=== PATIENT | male | born 2000 ===

== ENCOUNTER 2024-06-23 12:31 | Emergency (ER) | payer OTHER, SELFPAY ==
[2024-06-23 12:38] VITALS: BP 162/81; PULSE 98; RESP 16; TEMP 36.4; O2SAT 99
--- NOTE | 2024-06-23 13:07 | ED_ITS ---
HPI - Skin/Abscess/Foreign Bdy General Chief complaint: Skin/Abscess/Foreign Body Stated complaint: Shingles Time Seen by Provider: 06/23/24 13:07 Source: patient and RN notes reviewed Mode of arrival: ambulatory Limitations: no limitations History of Present Illness HPI narrative: 24-year-old male presents Express Care complaining of possible shingles to his face. He states he has a history of recurrent shingles that is stress related. Patient had chickenpox as a child. Patient has not gotten the her the zoster vaccine yet. Patient reports that he noticed blisters around his right eye start taking is valacyclovir on Saturday and took additional dose this morning. States he has ran out of his antiviral medication and would like a refill to finish treatment. Patient denies any fevers, body aches, chills, upper respiratory symptoms. Denies any vision changes, blurry vision, headaches, tinnitus, or hearing loss. Related Data Allergies Allergy/AdvReac Type Severity Reaction Status Date / Time No Known Allergies Allergy Verified 06/23/24 12:45 Review of Systems Review of Systems: CONSTITUTIONAL: Denies fever, chills, or sweats. EYES: Denies visual changes, blurry vision, redness, or discharge. ENT: Denies rhinorrhea, congestion, sore throat, hearing changes, or otalgia. CARDIOVASCULAR: Denies chest pain, palpitations, or edema. RESPIRATORY: Denies cough or dyspnea. GASTROINTESTINAL: Denies abdominal pain, nausea, vomiting, or diarrhea. GENITOURINARY: Denies dysuria or hematuria. SKIN: Positive for rash. Negative for itching. MUSCULOSKELETAL: Denies back pain, joint pain, or myalgia. NEUROLOGIC: Denies headache, numbness, or weakness. PSYCHIATRIC: Denies anxiety or depression. All other systems reviewed are negative, except as documented in HPI. [facility] Past Medical History Medical History History of shingles Surgical History Surgical History Walnut teeth extracted (~2019) History of tonsillectomy (~2009) Family History Family History Father Diabetes mellitus Grandparent Lung cancer Grandparent Cerebrovascular accident Social History Social History Smoking status: Never smoker Alcohol intake: never Substance use: never Substance use type: does not use Living arrangements: with roommate(s) Occupation/Education: student Gender identity (if verbalized by the patient): Male Agree to blood products: Yes Comments At the time of my signature, I reviewed and agree with the nursing past medical, surgical, social, and family history. There is no relevant family history pertinent to the patient complaint. Exam Narrative: GENERAL: This is a well-nourished, well-developed adult, in no apparent distress. They are non ill-appearing, nontoxic appearing. HEAD: normocephalic, atraumatic. EYES: Sclera clear/white. Conjunctiva normal. Vision is grossly intact. Extraocular movements intact without pain. Pupils PERRLA. Upper and lower eyelids are normal bilaterally. Left eye: Wood's lamp exam unremarkable, no evidence of corneal abrasion, ulceration, or dendritic lesions. EARS: External ears normal, auditory canals clear and without drainage, TMs normal without perforation. Hearing grossly intact. NOSE: External nose normal with no obvious nasal discharge, nasal turbinates without redness, no rhinorrhea. THROAT: Mucous membranes moist, posterior pharynx clear, without erythema or swelling. Uvula midline. NECK: Neck supple, non-tender without lymphadenopathy, masses or thyromegaly. CARDIOVASCULAR: Regular rate and rhythm RESPIRATORY: Normal respiratory SKIN: Face: 3 small Vesicular macular papular rash present to the lateral orbit. Rashes not cross the dermatome. No rash present to the patient's eyelid s, eyebrows, forehead, or near the nose. Mild tenderness present. No surrounding cellulitis, discharge, area of fluctuance or induration. NEURO: awake, alert, and oriented to person, place and time. There were no obvious focal neurologic abnormalities. EXTREMITIES: No joint tenderness, effusion, or edema noted. BACK: Nontender without deformity. No CVA tenderness. Course Course Emergency Course: Portions of this record may have been created with voice recognition software Level of Care: Express Care Visit Vital Signs Vital signs: Vital Signs Temperature 97.6 F 06/23/24 12:38 Pulse Rate 98 06/23/24 12:38 Respiratory Rate 16 06/23/24 12:38 Blood Pressure 162/81 H 06/23/24 12:38 Pulse Oximetry 99 06/23/24 12:38 Temperature 97.6 F 06/23/24 12:38 Pulse Rate 98 06/23/24 12:38 Respiratory Rate 16 06/23/24 12:38 Blood Pressure 162/81 H 06/23/24 12:38 Pulse Oximetry 99 06/23/24 12:38 Reviewed MDM - Skin/Abscess/Foreign Bdy MDM Narrative Medical decision making narrative: Patient likely has a herpes zoster flare up. Patient denies any vision disturbances, vision changes, hearing changes, tinnitus. Rash is not present near the patient's eyelid, eyebrow, or nose. Wood's lamp exam is unremarkable. No dendritic lesions, ulceration, or corneal abrasions present. Will prescribe valacyclovir to finish his course for the herpes zoster that he started at home to prevent worsening symptoms as it is near his eye.. Discussed physical exam findings. Advised supportive measures and signs/symptoms to go to the ER. Pt is appropriate for outpt treatment and f/u. Differential Diagnosis Differential diagnosis: Likely other (Herpes zoster, contact dermatitis, cellulitis) Critical Care Time Critical Care Time Critical Care Time: No Discharge Plan Discharge Clinical Impression: Herpes zoster Qualifiers: Herpes zoster complications: without complications Qualified Code(s): B02.9 - Zoster without complications Patient Disposition: Home Condition: Stable Instructions: Shingles (ED) Additional Instructions: Does likely have a flare-up of your shingles. You have been given a refill be valacyclovir to continue treatment. Please take as directed. Your exam was normal there is no evidence of shingles involvement in your eye. Please follow- up with primary care provider in 3-5 days. Restart your primary care provider about the shingles vaccine. He developed any vision changes, pain in your eye, blurry vision, ringing in your urine, hearing problems, or any other concerns please go to the ER immediately. Patient Language: Arabic Prescriptions: New valacyclovir 1 gram tablet 1,000 mg PO TID 7 Days Qty: 21 0RF Follow-up/Referrals: PHYSICIAN,COMPOUND FINISHER [Primary Care Provider] - Time of Disposition: 13:32
[2024-06-23] MEDS: DACRIOSE EYE IRRIGATION 118 ML BOTTLE RIGHT EYE (13:16)
[2024-06-23] MEDS: TETRACAINE HCL 0.5% OPHTH SOLN 4 ML BTL RIGHT EYE (13:16)
[2024-06-23] MEDS: FLUORESCEIN SOD 1 MG/STRIP RIGHT EYE (13:17)
== END 2024-06-23 13:36 | disposition home or self-care (01) ==
DX: B02.9 Zoster without complications (principal)
CPT/HCPCS: 99213; A9270; G0463